=== PATIENT | male | born 1995 | race Caucasian/White ===

== ENCOUNTER 2025-04-17 12:14 | Emergency (ER) | payer OTHER, SELFPAY ==
[2025-04-17 12:20] VITALS: BP 127/84
--- NOTE | 2025-04-17 14:37 | ED.GENMED ---
History of Present Illness
General
Chief Complaint: Allergic Reaction
Source: patient
Exam Limitations: none
Time Seen by Provider: 04/17/25 14:25
History of Present Illness
History of Present Illness:
29yoM with a history of a peanut allergy presenting for evaluation after a peanut exposure. Patient is currently at [facility]. He ate a dried sarah around 11:30am and states it 'tasted funny.' He states that the
sarah had a peanut powder in it and was given to him in a trail mix bowl. He attempted to induce vomiting for 15 minutes to try to expel everything. He self administered an EpiPen and nursing staff at the [facility] facility gave him 50 mg IM
Benadryl. He is currently asymptomatic and denies any dysphagia, shortness of breath, hives, diarrhea, further vomiting. He had 1 reaction to peanuts in the past which was hives for several weeks. He is currently having an eczema flare but denies
any hives at this time.
Phy Exam
General Physical Exam
General Presentation: well appearing and no apparent distress
General Skin: warm and dry
General Habitus: normal
General Mental: alert
ENT Exam
ENT Exam: pharynx normal, normocephalic and other (No angioedema. Normal phonation. Tolerating oral secretions without difficulty. )
Pulmonary Exam
Pulmonary Exam: lungs clear, no respiratory distress, no rales, no crackles, no rhonchi and no wheezing
Neurological Exam
Neurological Exam: alert
Alejandra Coma Scale
Eye Opening: Spontaneous
Verbal Response: Oriented
Motor Response: Obeys Commands
GCS Total Score: 15
Skin Exam
Skin Exam: warm/dry and other (Eczematous rash noted. No urticaria.)
Psychiatric Exam
Psychiatric Exam: normal mood/affect
Course
Orders/Labs/Results
Orders:
Orders
04/17/25 14:48
Dexamethasone [Decadron] 10 mg PO NOW STA
Vital Signs
Initial and Last Documented VS:
Initial Vital Signs
Temp Pulse Resp BP Pulse Ox
98.1 F 92 18 127/84 98
04/17/25 12:20 04/17/25 12:20 04/17/25 12:20 04/17/25 12:20 04/17/25 12:20
Last Documented Vital Signs
Temp Pulse Resp BP Pulse Ox
98.1 F 86 18 118/69 98
04/17/25 12:20 04/17/25 15:21 04/17/25 15:21 04/17/25 15:21 04/17/25 15:24
MDM/Problems Addressed
Differential Diagnosis Includes:
29yoM here after consuming a sarah that he believes had peanut powder in. Self-induced vomiting immediately afterwards. Gave himself an EpiPen although he denies any symptoms of an allergic reaction. Patient asymptomatic on initial exam and
vitals are stable. No angioedema or urticaria noted. Lungs CTA without wheezing or stridor. Patient stable for discharge. Will give dose of PO Decadron for completeness. Refill given for epinephrine and ED return precautions reviewed. He was
discharged in stable condition.
*Pulse Oximetry
SaO2: 98
Oxygen Mode of Delivery: Room air
Patient hypoxic: no (98%)
*Critical Care Note
Total Time (30-74mins, 75-104mins- exclusive of procedures): Not Applicable
ED Attending Note
-
Portions of this chart may have been created with voice recognition software.� Occasional wrong word or��sound alike� substitutions may have occurred due to the inherent limitations of voice recognition software.
Discharge Plan
Departure
Patient Disposition: Home (Routine Discharge)
Date of Disposition: 04/17/25
Time of Disposition: 14:48
Patient with high blood pressure during this ER visit?: No
Discharge Problem:
History of allergy to peanuts
Instructions: Allergic reaction - ED discharge instructions
Prescriptions:
New
epinephrine [EpiPen 2-Rambo] 0.3 mg/0.3 mL auto-injector
0.3 mg IM ONCE PRN (Reason: anaphylaxis) Qty: 2 0RF
Activity Restrictions/Additional Instructions:
Take Benadryl 25mg every 6 hours as needed. Administer EpiPen with any trouble breathing or swallowing.
Please follow-up with your family doctor. Return to the ER with any worsening symptoms or if you have to use an EpiPen.
Interventions
Interventions:
*Risk Screen - Suicide Last Done: 04/17/25 12:20
*General Assessment Last Done: 04/17/25 15:24
*Neglect/Abuse Screening Last Done: 04/17/25 15:24
*ED- Fall Risk Assessment Last Done: 04/17/25 15:24
*ED COVID-19 Vaccine History Last Done: 04/17/25 15:24
*Nursing Disposition Last Done: 04/17/25 16:00
ED- Cardiac Assessment Last Done: 04/17/25 15:24
ED- Pulmonary Assessment Last Done: 04/17/25 15:24
ED-Skin Assessment Last Done: 04/17/25 15:24
Discharge Date and Time
Discharge Date/Time: 04/17/25 16:00
Print Language: [email or web address]
[2025-04-17] MEDS: DECADRON 10 MG PO (15:17)
[2025-04-17 15:21] VITALS: BP 118/69
== END 2025-04-17 16:00 | disposition home or self-care (01) ==
LOC: EMR 12:14
PROVIDERS: EMERGENCY PHYSICIAN Emergency Medicine; FAMILY PHYSICIAN Family Medicine
DX: X58.XXXA Exposure to other specified factors, initial encounter (principal); Z91.010 Allergy to peanuts
CPT/HCPCS: 99283